=== PATIENT | male | born 1970 | race American Indian/Alaskan Native ===

== ENCOUNTER 2019-02-16 13:23 | Emergency (ER) | payer MEDICAID, OTHER ==
[2019-02-16 13:23] VITALS: BMI 24.7
[2019-02-16 13:31] VITALS: BP 134/91; PULSE 64; RESP 18; TEMP 99.3; O2SAT 99
--- NOTE | 2019-02-16 13:46 | C.PDOC ---
History Of Present Illness 48 year old male, with history of sarcoidosis, presents to ED for swelling and redness to right arm. States that he was at an outpatient clinic getting a chest CT scan with contrast for evaluation of cough. After CT, he noticed some swelling and redness to his right arm where he had the IV. Patient put ice packs to the area and reports that the swelling went down. States he had IV contrast before with no reactions. Currently complains that his arm feels tight. denies itching, SOB, chest pain. Time Seen by Provider: 02/16/19 13:32 Chief Complaint (Nursing): Upper Extremity Problem/Injury History Per: Patient History/Exam Limitations: no limitations Onset/Duration Of Symptoms: Hrs Current Symptoms Are (Timing): Still Present Past Medical History Reviewed: Historical Data, Nursing Documentation, Vital Signs Vital Signs: Last Vital Signs Temp 99.3 F 02/16/19 13:29 Pulse 64 02/16/19 13:29 Resp 18 02/16/19 13:29 BP 134/91 H 02/16/19 13:29 Pulse Ox 99 02/16/19 13:29 Primary Care Provider: Juan Ornelas - Medical History PMH: Asthma, Back Problems, HTN Denies: Bronchitis, COPD, Emphysema, Pneumonia, Pulmonary Embolism, Chronic Kidney Disease, Sleep Apnea Surgical History: Endoscopy - [facility] Procedures CLOSED ENDOSCOPIC BIOPSY OF LARGE INTESTINE (02/11/14) CLOSED ENDOSCOPIC BIOPSY OF LUNG (04/30/13) ENDOSCOPIC BRONCHIAL BX (04/30/13) ESOPHAGOGASTRODUODENOSCOPY [EGD] W/CLOSED BIOPSY (02/11/14) LYMPHATIC STRUCT BIOPSY (05/07/13) MEDIASTINOSCOPY (05/07/13) Family History: States: No Known Family Hx - Social History Hx Tobacco Use: No Hx Alcohol Use: No Hx Substance Use: No - Immunization History Hx Tetanus Toxoid Vaccination: Yes Hx Influenza Vaccination: No Hx Pneumococcal Vaccination: No Review Of Systems Constitutional: Negative for: Fever, Chills Musculoskeletal: Positive for: Other (Swelling and redness to the right arm) Neurological: Negative for: Weakness, Numbness Physical Exam - Physical Exam Appears: Well, Non-toxic, No Acute Distress Skin: Warm, Dry Head: Atraumatic, Normacephalic Eye(s): bilateral: Normal Inspection, EOMI Oral Mucosa: Moist Neck: Normal ROM Chest: Symmetrical Extremity: Normal ROM, No Deformity, Other (right extremity antecubital fossa with visible site of IV insertion is erythematous, and superficial erythema and swelling about 3cm above the site, no palpable cord or nodules; no rash, no ecchymosis) Extremity: Bilateral: Normal ROM Pulses: Right Brachial: Normal, Right Radial: Normal Neurological/Psych: Oriented x3, Normal Speech, Normal Motor, Normal Sensation Gait: Steady ED Course And Treatment O2 Sat by Pulse Oximetry: 99 (RA) Pulse Ox Interpretation: Normal Medical Decision Making Medical Decision Making: Patient with mild erythema and swelling at site of IV on right upper extremity, this appears to be phlebitis. No signs of acute cellulitis or allergic reaction. Patient appears well and in no distress. He has normal radial and brachial pulse to the right arm. Explain to patient this condition will self resolve. Recommend NSAID and can apply ice pack to area. He can observe the area over the next few days and if any increased redness, swelling, pain or other concerning symptoms develop then to seek further medical attention Disposition Counseled Patient/Family Regarding: Diagnosis, Need For Followup - Disposition Referrals: Juan Ornelas MD [Staff Provider] - Disposition: HOME/ ROUTINE Disposition Time: 13:44 Condition: STABLE Additional Instructions: Take Ibuprofen, Aleve or Advil to help with inflammation. Move the extremity around, keep circulation moving, try to keep it elevated. Can apply ice packs Follow up with your doctor in few days If you develop increasing pain, redness, swelling, numbness, weakness, temperature changes then return to the ED Instructions: Phlebitis (DC) - POA Present On Arrival: None - Clinical Impression Clinical Impression: Phlebitis of right arm - PA / SAP DATA ANALYST / Resident Statement MD/DO has reviewed & agrees with the documentation as recorded. - Scribe Statement The provider has reviewed the documentation as recorded by the Bjornibnuno Martinez All medical record entries made by the Kieran were at my direction and personally dictated by me. I have reviewed the chart and agree that the record accurately reflects my personal performance of the history, physical exam, medical decision making, and the department course for this patient. I have also personally directed, reviewed, and agree with the discharge instructions and disposition.
== END 2019-02-16 14:00 | disposition home or self-care (01) ==
LOC: C.ER 13:23
DX: I80.8 Phlebitis and thrombophlebitis of other sites (principal)